=== PATIENT | male | born 2005 | race Caucasian/White ===

== ENCOUNTER 2024-10-17 14:50 | Inpatient (IN) | payer BC ==
[2024-10-17] MEDS ORDERED: LORazepam 1 MG/0.5 ML VIAL IV PRN ×3 (15:14)
[2024-10-17] MEDS ORDERED: LORazepam 0.5 MG TAB PO PRN (15:14)
[2024-10-17] MEDS ORDERED: LORazepam 1 MG TAB PO PRN ×5 (15:14→23:24)
--- NOTE | 2024-10-17 15:16 | ED ---
Alcohol HPI - General Chief Complaint: Alcohol Stated Complaint: Mental health eval Time Seen by Provider: 10/17/24 15:14 Source: patient, RN notes reviewed, old records reviewed Mode of arrival: ambulatory Limitations: no limitations - History of Present Illness Initial Comments: This is a 19-year-old male who comes in for alcohol evaluation history of alcohol use increased recent alcohol use with thoughts and persistent thoughts of suicidal ideation MD Complaint: alcohol intoxication Last Drink: just [employer] Previous Visits for Alcohol Intoxication?: Yes Recent Trauma: Yes Associated Symptoms: denies other symptoms Treatments Prior to Arrival: none Chronic Alcohol Use: No - Related Data Previous Rx's Medication Instructions Recorded Folic Acid 1 mg PO DAILY tab 10/23/24 Mirtazapine [Remeron] 15 mg PO HS 30 Days #30 tab 10/23/24 Multivitamins, Thera [Multivitamin 1 each PO DAILY tab 10/23/24 (formulary)] Naltrexone HCl [Revia] 50 mg PO DAILY 30 Days #30 tab 10/23/24 Nicotine 21Mg/24Hr Patch [Habitrol] 1 patch TRANSDERM DAILY 14 Days 10/23/24 #14 patch Sertraline [Zoloft] 50 mg PO HS 30 Days #30 tab 10/23/24 Thiamine [Vitamin B-1] 100 mg PO DAILY tab 10/23/24 Allergies Allergy/AdvReac Type Severity Reaction Status Date / Time No Known Allergies Allergy Verified 10/17/24 14:56 Review of Systems ROS Statement: Those systems with pertinent positive or pertinent negative responses have been documented in the HPI. ROS Other: All systems not noted in ROS Statement are negative. Past Medical History Past Medical History: No Reported History History of Any Multi-Drug Resistant Organisms: None Reported Past Surgical History: No Surgical Hx Reported Past Psychological History: No Psychological Hx Reported Smoking Status: Current every day smoker, Vaper Past Alcohol Use History: Abuse, Daily Past Drug Use History: None Reported - Past Family History Father Family Medical History: Unable to Obtain Mother Family Medical History: Unable to Obtain General Exam Limitations: no limitations General appearance: alert, in no apparent distress Head exam: Present: atraumatic, normocephalic, normal inspection Eye exam: Present: normal appearance, PERRL, EOMI. Absent: scleral icterus, conjunctival injection, periorbital swelling ENT exam: Present: normal exam, mucous membranes moist Neck exam: Present: normal inspection. Absent: tenderness, meningismus, lymphadenopathy Respiratory exam: Present: normal lung sounds bilaterally. Absent: respiratory distress, wheezes, rales, rhonchi, stridor Cardiovascular Exam: Present: regular rate, normal rhythm, normal heart sounds. Absent: systolic murmur, diastolic murmur, rubs, gallop, clicks GI/Abdominal exam: Present: soft, normal bowel sounds. Absent: distended, tenderness, guarding, rebound, rigid Extremities exam: Present: normal inspection, full ROM, normal capillary refill. Absent: tenderness, pedal edema, joint swelling, calf tenderness Back exam: Present: normal inspection Neurological exam: Present: alert, oriented X3, CN II-XII intact Psychiatric exam: Present: normal affect, normal mood Skin exam: Present: warm, dry, intact, normal color. Absent: rash Course Vital Signs 10/17/24 10/17/24 10/17/24 14:51 18:03 21:00 Temperature 98.4 F 98.4 F Pulse Rate 114 H 81 62 Respiratory 22 17 18 Rate Blood Pressure 167/81 131/79 117/54 O2 Sat by Pulse 98 99 98 Oximetry - Reevaluation(s) Reevaluation #1: 10/17/24 20:02 Medical records reviewed Reevaluation #2: 10/17/24 20:02 Medically cleared for psychiatric evaluation Reevaluation #3: Was pt. sent in by a medical professional or institution (, PA, DIRECTOR RADIO, urgent care, hospital, or halfway...) When possible be specific @ -no Did you speak to anyone other than the patient for history (EMS, parent, family, police, friend...)? What history was obtained from this source @ -no Did you review nursing and triage notes (agree or disagree)? Why? @ -agree Are old charts reviewed (outside hosp., previous admission, EMS record, old EKG, old radiological studies, urgent care reports/EKG's, halfway records)? Report findings @ -yes Differential Diagnosis (chest pain, altered mental status, abdominal pain women, abdominal pain men, vaginal bleeding, weakness, fever, dyspnea, syncope, headache, dizziness, GI bleed, back pain, seizure, CVA, palpatations, mental health, musculoskeletal)? @ -prior EKG interpreted by me (3pts min.). @ -no X-rays interpreted by me (1pt min.). @ -no CT interpreted by me (1pt min.). @ -no U/S interpreted by me (1pt. min.). @ -no What testing was considered but not performed or refused? (CT, X-rays, U/S, labs)? Why? @ -none What meds were considered but not given or refused? Why? @ -none Did you discuss the management of the patient with other professionals (professionals i.e. , PA, DIRECTOR RADIO, lab, RT, psych nurse, psychiatric social worker supervisor, assessment consultant, teacher, fisheries enforcement officer, gearcase assembler)? Give summary @ -no Was smoking cessation discussed for >3mins.? @ -no Was critical care preformed (if so, how long)? @ -no Were there social determinants of health that impacted care today? How? (Homelessness, low income, unemployed, alcoholism, drug addiction, transportation, low edu. Level, literacy, decrease access to med. care, senior living, rehab)? @ -none Was there de-escalation of care discussed even if they declined (Discuss DNR or withdrawal of care, Hospice)? DNR status @ -no What co-morbidities impacted this encounter? (DM, HTN, Smoking, COPD, CAD, Cancer, CVA, ARF, Chemo, Hep., AIDS, mental health diagnosis, sleep apnea, morbid obesity)? @ -none Was patient admitted / discharged? Hospital course, mention meds given and route, prescriptions, significant lab abnormalities, going to OR and other pertinent info. @ - 19 male who was seen eval by psychiatry in the ER and patient will be admitted for psychiatric evaluation and treatment secondary to depression and suicidal ideation Transferred for inpatient psychiatric evaluation Undiagnosed new problem with uncertain prognosis? @ -no Drug Therapy requiring intensive monitoring for toxicity (Heparin, Nitro, Insulin, Cardizem)? @ -no Were any procedures done? @ -no Diagnosis/symptom? @ -Major depression suicidal ideation Acute, or Chronic, or Acute on Chronic? @ -Acute Uncomplicated (without systemic symptoms) or Complicated (systemic symptoms)? @ -Complicated Side effects of treatment? @ -no Exacerbation, Progression, or Severe Exacerbation? @ -exacerbation Poses a threat to life or bodily function? How? (Chest pain, USA, NC, pneumonia, PE, COPD, DKA, ARF, appy, cholecystitis, CVA, Diverticulitis, Homicidal, Suicidal, threat to staff... and all critical care pts) @ -no Reevaluation #4: Differential Mental Health Depression, anxiety, bipolar, psychosis, schizophrenia, borderline personality, situational depression, adjustment disorder, behavioral disorder, brain tumor, malingering, substance abuse, encephalopathy, medication reaction, dementia, hypothyroidism, degenerative neurologic disorder, lupus.... This is not meant to be all-inclusive list Medical Decision Making - Medical Decision Making 19 male who was seen eval by psychiatry in the ER and patient will be admitted for psychiatric evaluation and treatment secondary to depression and suicidal id eation - Lab Data Result diagrams: 10/18/24 07:05 10/18/24 07:05 Lab Results 10/17/24 10/17/24 10/17/24 Range/Units 15:15 15:15 15:15 WBC 7.82 (4.50-10.00) 10*3/uL RBC 4.94 (4.40-5.60) 10*6/uL Hgb 15.3 (13.0-17.0) g/dL Hct 44.5 (39.6-50.0) % MCV 90.1 (80.0-97.0) fL MCH 31.0 (27.0-32.0) pg MCHC 34.4 (32.0-37.0) g/dL Plt Count 221 (140-440) 10*3/uL MPV 9.9 (9.5-12.2) fL Immature Gran % (Auto) 0.1 % Neutrophils % 74.5 % Lymphocytes % 16.5 % Monocytes % 6.8 % Eosinophils % 1.8 % Basophils % 0.3 % Immature Gran # 0.01 (0.00-0.04) 10*3/uL Neutrophils # 5.83 (1.80-7.70) 10*3/uL Lymphocytes # 1.29 (0.90-5.00) 10*3/uL Monocytes # 0.53 (0.20-1.00) 10*3/uL Eosinophils # 0.14 (0.04-0.35) 10*3/uL Basophils # 0.02 (0.00-0.10) 10*3/uL Sodium 139 (137-145) mmol/L Potassium 4.0 (3.5-5.1) mmol/L Chloride 105 (98-107) mmol/L Carbon Dioxide 25 (22-30) mmol/L Anion Gap 9 mmol/L BUN 11 (9-20) mg/dL Creatinine 0.73 (0.66-1.25) mg/dL Est GFR (CKD-EPI)AfAm >90 (>60 ml/min/1.73 sqM) Est GFR (CKD-EPI)NonAf >90 (>60 ml/min/1.73 sqM) Glucose 121 H (74-99) mg/dL Calcium 9.9 (8.4-10.2) mg/dL Phosphorus 3.5 (2.5-4.5) mg/dL Magnesium 2.1 (1.6-2.3) mg/dL Total Bilirubin 0.9 (0.2-1.3) mg/dL AST 33 (17-59) U/L ALT 27 (4-49) U/L Alkaline Phosphatase 63 (38-126) U/L Total Protein 7.3 (6.3-8.2) g/dL Albumin 4.8 (3.5-5.0) g/dL Lipase 43 (23-300) U/L Urine Color Light Yellow Urine Appearance Turbid (Clear) Urine pH 7.0 (5.0-8.0) Ur Specific [place] 1.014 (1.001-1.035) Urine Protein Trace H (Negative) Urine Glucose (UA) Negative (Negative) Urine Ketones Negative (Negative) Urine Blood Negative (Negative) Urine Nitrite Negative (Negative) Urine Bilirubin Negative (Negative) Urine Urobilinogen <2.0 (<2.0) mg/dL Ur Leukocyte Esterase Negative (Negative) Urine WBC <1 (0-5) /hpf Amorphous Sediment Moderate H (None) /hpf Urine Mucus Many H (None) /hpf Urine Opiates Screen Not Detected (NotDetected) Ur Oxycodone Screen Not Detected (NotDetected) Urine Methadone Screen Not Detected (NotDetected) Ur Barbiturates Screen Not Detected (NotDetected) U Tricyclic Antidepress Not Detected (NotDetected) Ur Phencyclidine Scrn Not Detected (NotDetected) Ur Amphetamines Screen Not Detected (NotDetected) U Methamphetamines Scrn Not Detected (NotDetected) U Benzodiazepines Scrn Detected H (NotDetected) Urine Cocaine Screen Detected H (NotDetected) U Marijuana (THC) Screen Not Detected (NotDetected) Serum Alcohol <10 mg/dL Coronavirus (PCR) (Not Detectd) 10/17/24 Range/Units 21:32 WBC (4.50-10.00) 10*3/uL RBC (4.40-5.60) 10*6/uL Hgb (13.0-17.0) g/dL Hct (39.6-50.0) % MCV (80.0-97.0) fL MCH (27.0-32.0) pg MCHC (32.0-37.0) g/dL Plt Count (140-440) 10*3/uL MPV (9.5-12.2) fL Immature Gran % (Auto) % Neutrophils % % Lymphocytes % % Monocytes % % Eosinophils % % Basophils % % Immature Gran # (0.00-0.04) 10*3/uL Neutrophils # (1.80-7.70) 10*3/uL Lymphocytes # (0.90-5.00) 10*3/uL Monocytes # (0.20-1.00) 10*3/uL Eosinophils # (0.04-0.35) 10*3/uL Basophils # (0.00-0.10) 10*3/uL Sodium (137-145) mmol/L Potassium (3.5-5.1) mmol/L Chloride (98-107) mmol/L Carbon Dioxide (22-30) mmol/L Anion Gap mmol/L BUN (9-20) mg/dL Creatinine (0.66-1.25) mg/dL Est GFR (CKD-EPI)AfAm (>60 ml/min/1.73 sqM) Est GFR (CKD-EPI)NonAf (>60 ml/min/1.73 sqM) Glucose (74-99) mg/dL Calcium (8.4-10.2) mg/dL Phosphorus (2.5-4.5) mg/dL Magnesium (1.6-2.3) mg/dL Total Bilirubin (0.2-1.3) mg/dL AST (17-59) U/L ALT (4-49) U/L Alkaline Phosphatase (38-126) U/L Total Protein (6.3-8.2) g/dL Albumin (3.5-5.0) g/dL Lipase (23-300) U/L Urine Color Urine Appearance (Clear) Urine pH (5.0-8.0) Ur Specific [place] (1.001-1.035) Urine Protein (Negative) Urine Glucose (UA) (Negative) Urine Ketones (Negative) Urine Blood (Negative) Urine Nitrite (Negative) Urine Bilirubin (Negative) Urine Urobilinogen (<2.0) mg/dL Ur Leukocyte Esterase (Negative) Urine WBC (0-5) /hpf Amorphous Sediment (None) /hpf Urine Mucus (None) /hpf Urine Opiates Screen (NotDetected) Ur Oxycodone Screen (NotDetected) Urine Methadone Screen (NotDetected) Ur Barbiturates Screen (NotDetected) U Tricyclic Antidepress (NotDetected) Ur Phencyclidine Scrn (NotDetected) Ur Amphetamines Screen (NotDetected) U Methamphetamines Scrn (NotDetected) U Benzodiazepines Scrn (NotDetected) Urine Cocaine Screen (NotDetected) U Marijuana (THC) Screen (NotDetected) Serum Alcohol mg/dL Coronavirus (PCR) Not Detected (Not Detectd) Disposition Clinical Impression: Major depression, Suicidal ideation Disposition: TRANSFER TO PSYCH HOSP/UNIT Condition: Fair Is patient prescribed a controlled substance at d/c from ED?: No
[2024-10-17] MEDS: LORazepam 1 MG/0.5 ML VIAL IV STA (16:11)
[2024-10-17] MEDS: SODIUM CHLORIDE 0.9% 1,000 ML IV STA (16:17)
[2024-10-17 16:26] LABS: Basophils # (A) 0.02 10*3/uL (0.00-0.10); Basophils % (A) 0.3 %; Eosinophils # (A) 0.14 10*3/uL (0.04-0.35); Eosinophils % (A) 1.8 %; HCT 44.5 % (39.6-50.0); HGB 15.3 g/dL (13.0-17.0); Lymphocytes # (A) 1.29 10*3/uL (0.90-5.00); Lymphocytes % (A) 16.5 %; MCHC 34.4 g/dL (32.0-37.0); MCV 90.1 fL (80.0-97.0); Mean Platelet Volume 9.9 fL (9.5-12.2); Monocytes # (A) 0.53 10*3/uL (0.20-1.00); Monocytes % (A) 6.8 %; Neutrophils # (A) 5.83 10*3/uL (1.80-7.70); Neutrophils % (A) 74.5 %; Platelet Count 221 10*3/uL (140-440); RBC 4.94 10*6/uL (4.40-5.60); RDW 12.5 % (11.5-14.5); WBC 7.82 10*3/uL (4.50-10.00)
[2024-10-17 16:46] LABS: ALT 27 U/L (4-49); African American GFR (CKD) >90 (>60 ml/min/1.73 sqM); Alcohol <10 mg/dL; Anion Gap 9 mmol/L; Blood Urea Nitrogen 11 mg/dL (9-20); Calcium 9.9 mg/dL (8.4-10.2); Carbon Dioxide 25 mmol/L (22-30); Chloride 105 mmol/L (98-107); Glucose 121 mg/dL (74-99); Lipase 43 U/L (23-300); Non-African American GFR(CKD) >90 (>60 ml/min/1.73 sqM); Sodium 139 mmol/L (137-145); Total Bilirubin 0.9 mg/dL (0.2-1.3)
[2024-10-17 17:02] LABS: AST 33 U/L (17-59); Albumin 4.8 g/dL (3.5-5.0); Alkaline Phosphatase 63 U/L (38-126); Magnesium 2.1 mg/dL (1.6-2.3); Phosphorus 3.5 mg/dL (2.5-4.5); Total Protein 7.3 g/dL (6.3-8.2)
[2024-10-17 22:52] LABS: Amorphous Sediment,Urine Moderate /hpf; Appearance,Urine Turbid (Clear); Bilirubin,Urine Negative (Negative); Blood,Urine Negative (Negative); Color,Urine Light Yellow; Glucose,Urine (UA) Negative (Negative); Ketones,Urine Negative (Negative); Leukocyte Esterase,Urine Negative (Negative); Mucus,Urine Many /hpf; Nitrite,Urine Negative (Negative); Protein,Urine Trace (Negative); Specific Gravity,Urine 1.014 (1.001-1.035); Urobilinogen,Urine <2.0 mg/dL (<2.0); WBC,Urine <1 /hpf (0-5)
[2024-10-17 23:12] LABS: Phencyclidine Screen,Urine Not Detected (NotDetected); Urn Cannabinoid Scrn Not Detected (NotDetected)
[2024-10-17 23:13] LABS: Amphetamine Screen,Urine Not Detected (NotDetected); Barbiturate Screen,Urine Not Detected (NotDetected); Benzodiazepines Screen,Urine Detected (NotDetected); Cocaine Screen,Urine Detected (NotDetected); Methadone Screen, Urine Not Detected (NotDetected); Opiate Screen,Urine Not Detected (NotDetected); Oxycodone Screen, Urine Not Detected (NotDetected); Tricyclic Antidepressant,Urine Not Detected (NotDetected)
[2024-10-17] MEDS ORDERED: MAGNESIUM HYDROXIDE 2,400 MG/30 ML CUP PO PRN (23:24)
[2024-10-17] MEDS ORDERED: ACETAMINOPHEN TAB 325 MG TAB PO PRN (23:24)
[2024-10-17] MEDS ORDERED: IBUPROFEN 600 MG TAB PO PRN (23:24)
[2024-10-17] MEDS ORDERED: MAG HYDROX/AL HYDROX/SIMETH 355 ML BOTTLE PO PRN (23:24)
[2024-10-17] MEDS ORDERED: haloperidoL 5 MG TAB PO PRN (23:27)
[2024-10-17] MEDS ORDERED: HALOPERIDOL LACTATE 5 MG/ML 1 ML VIAL IM PRN (23:27)
--- NOTE | 2024-10-18 01:48 | P.HPIM ---
History of Present Illness H&P Date: 10/18/24 Chief Complaint: Medical Managment This is a 19-year-old male who comes in for alcohol evaluation history of alcohol use increased recent alcohol use with thoughts and persistent thoughts of suicidal ideation. Patient reports that he drinks around a pint of whiskey every day. He denies having any prior episodes of seizure. He does report symptoms of anxiety and tremor . Never seek medical help or attended rehab prior Past medical history : none Past surgical history : none Social history : Smokes around 1 pack/day, drinks around a pint of whiskey per day, denies any drug use (however his urine drug screen is positive for cocaine and benzodiazepine) PE : General: nontoxic, no distress, appears at stated age Derm: warm, dry, intact Head: atraumatic, normocephalic, symmetric Eyes: EOMI, anicteric sclera Mouth: no lip lesion, mucus membranes moist Cardiovascular: S1 S2 reg, no murmur, rubs, or gallops Lungs: CTA bilateral, no rales, no accessory muscle use Abdominal: soft, non-tender to palpataion, no appreciable organomegaly Extremities: no gross muscle atrophy, no edema, no contractures Neuro: Alert, Oriented, CNII-XII grossly intact, gait normal Psych: well appearing, appropriate affect II: Pupils equal and reactive, no RAPD, normal visual field and fundus III, IV, : EOM intact, no gaze preference or deviation V: normal VII: no facial asymmetry VIII: normal hearing to speech Assessment and plan : - Alcohol abuse with reports of alcohol withdrawal symptoms like tremors and anxiety : Continue with [facility] protocol Thiamine and folic acid daily -Suicidal ideation : Managed by behavioral unit -Drug abuse including cocaine : Counseling was done Thank you for the consult Time spent : 35 min Past Medical History Past Medical History: No Reported History History of Any Multi-Drug Resistant Organisms: None Reported Past Surgical History: No Surgical Hx Reported Past Anesthesia/Blood Transfusion Reactions: No Reported Reaction Smoking Status: Current every day smoker, Vaper - Past Family History Father Family Medical History: Unable to Obtain Mother Family Medical History: Unable to Obtain Medications and Allergies Allergies Allergy/AdvReac Type Severity Reaction Status Date / Time No Known Allergies Allergy Verified 10/17/24 14:56 Physical Exam Vitals: Vital Signs Temp Pulse Pulse Resp BP BP Pulse Ox 10/18/24 00:33 98.6 F 70 16 123/74 99 10/17/24 21:00 98.4 F 62 18 117/54 98 10/17/24 18:03 81 17 131/79 99 10/17/24 14:51 98.4 F 114 H 22 167/81 98 Intake and Output 10/17/24 10/17/24 10/18/24 14:59 22:59 06:59 Other: Weight 77.111 kg 77.111 kg Results CBC & Chem 7: 10/17/24 15:15 10/17/24 15:15 Labs: Abnormal Lab Results - Last 24 Hours (Table) 10/17/24 10/17/24 Range/Units 15:15 15:15 Glucose 121 H (74-99) mg/dL Urine Protein Trace H (Negative) Amorphous Sediment Moderate H (None) /hpf Urine Mucus Many H (None) /hpf U Benzodiazepines Scrn Detected H (NotDetected) Urine Cocaine Screen Detected H (NotDetected) Thrombosis Risk Factor Assmnt - Choose All That Apply Any of the Below Risk Factors Present?: No Other Risk Factors: No Thrombosis Risk Factor Assessment Level: Very Low Risk
[2024-10-18 07:23] LABS: Basophils # (A) 0.02 10*3/uL (0.00-0.10); Basophils % (A) 0.3 %; Eosinophils # (A) 0.22 10*3/uL (0.04-0.35); Eosinophils % (A) 3.7 %; HCT 42.6 % (39.6-50.0); HGB 13.9 g/dL (13.0-17.0); Lymphocytes # (A) 2.33 10*3/uL (0.90-5.00); Lymphocytes % (A) 39.3 %; MCH 30.7 pg (27.0-32.0); MCHC 32.6 g/dL (32.0-37.0); Mean Platelet Volume 9.6 fL (9.5-12.2); Monocytes # (A) 0.48 10*3/uL (0.20-1.00); Monocytes % (A) 8.1 %; Neutrophils # (A) 2.87 10*3/uL (1.80-7.70); Neutrophils % (A) 48.4 %; Platelet Count 197 10*3/uL (140-440); RBC 4.53 10*6/uL (4.40-5.60); RDW 12.3 % (11.5-14.5); WBC 5.93 10*3/uL (4.50-10.00)
[2024-10-18 07:35] LABS: ALT 25 U/L (4-49); AST 24 U/L (17-59); African American GFR (CKD) >90 (>60 ml/min/1.73 sqM); Albumin 4.1 g/dL (3.5-5.0); Alkaline Phosphatase 67 U/L (38-126); Anion Gap 8 mmol/L; Blood Urea Nitrogen 10 mg/dL (9-20); Calcium 10.1 mg/dL (8.4-10.2); Carbon Dioxide 30 mmol/L (22-30); Chloride 100 mmol/L (98-107); Glucose 96 mg/dL (74-99); Non-African American GFR(CKD) >90 (>60 ml/min/1.73 sqM); Potassium 4.1 mmol/L (3.5-5.1); Sodium 138 mmol/L (137-145); Total Bilirubin 0.9 mg/dL (0.2-1.3); Total Protein 6.4 g/dL (6.3-8.2)
[2024-10-18] MEDS: FOLIC ACID 1 MG TAB PO SCH (09:53)
[2024-10-18] MEDS: MULTIVITAMINS, THERA 1 EACH TAB PO SCH (09:53)
[2024-10-18] MEDS: THIAMINE 100 MG TAB PO SCH (09:53)
[2024-10-18] MEDS: NICOTINE 14MG/24HR PATCH TRANSDERM SCH (10:30)
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
[2024-10-18] MEDS: NALTREXONE HCL 50 MG TAB PO SCH (13:34)
[2024-10-18] MEDS: SERTRALINE 25 MG TAB PO SCH (13:35)
[2024-10-18 16:12] LABS: Chol/HDL Ratio 2.64 Ratio; LDL Cholesterol,Calculated 76.5 mg/dL (0.0-131.0)
--- NOTE | 2024-10-19 12:02 | P.PN ---
Progress Note - Text Progress Note Date: 10/19/24 Interval History: Patient was seen today for psychiatric follow up. Patient was active in group today doing a word search. He continues to minimize his suicidal thoughts and continues to be focused on discharge. Claims that yesterday he initially refused medications and then went back and took it. He claims that he may be feeling tired after taking the Zoloft was okay with having it switched to nighttime. We spoke about increasing the dose to 50 mg starting tomorrow. Claims that he has been trying to go to groups. Continues to have fairly poor insight. States that he may want to move out with his parents in [place]. At this time he is denying any issues with appetite. Denies any auditory or visual hallucinations denies any suicidal or homicidal ideations intent or plan. He is not reporting any withdrawal symptoms from alcohol. MENTAL STATUS EXAM: General Appearance: Patient appears to be well-built, wearing glasses, stated age is alert, directable, and attempts to cooperate. Minimizes. Patient appears to have improving hygiene and grooming. Behavior: Patient is seated without any agitated behavior. Superficial, guarded and evasive, improving mildly Speech: Patient's speech is fluent and nonpressured. Mood/Affect: Patient reports their mood is depressed, improving, affect is incongruent Suicidality/Homicidality: Patient denies having any homicidal ideation intent or plan. Denies any suicidal ideations intent or plan Perceptions: Patient denies any visual hallucinations and denies any auditory hallucinations Though content/process: There is no evidence of any delusional thought content and thought process is linear and goal-directed. Fairly concrete, guarded, improving mildly. Memory and concentration: AOX3, grossly intact for the purposes of this session Judgment and insight: Poor IMPRESSIONS: Depressive disorder unspecified Suicidal ideations Alcohol use disorder Cocaine abuse Nicotine dependence PLAN: -Patient is admitted under voluntary status to MHU for stabilization of psychiatric symptoms and safety. Patient has signed adult voluntary form and has not signed medication consent and is placed in patient's chart. -Medications : increase Zoloft 50 mg qhs for mood/anxiety, naltrexone 50 mg p.o. daily for alcohol cravings. Trazodone 50 mg nightly as needed for insomnia. -Ativan and Haldol PRN for agitation/aggression -thiamine, MVM for etoh use -CIWA protocol with Ativan PRN for ETOH withdrawal. -NRT -nicotine patch -SW on board for discharge planning. Encourage patient to participate in groups to work on coping skills. hopeful for discharge wednesday if patient is improving. he is refusing rehab at this time.
[2024-10-19] MEDS: NICOTINE 21MG/24HR PATCH TRANSDERM SCH (17:49)
[2024-10-19] MEDS: SERTRALINE 25 MG TAB PO ONE (20:24)
[2024-10-19] MEDS: traZODone HCL 50 MG TAB PO PRN (20:28)
--- NOTE | 2024-10-20 11:23 | P.PN ---
Progress Note - Text Progress Note Date: 10/20/24 Interval History: Patient was seen today for psychiatric follow up. Patient was wandering the h allways agreeable to speak to writer producer in the office. Claims that he is still having difficulties with his appetite. Claims that he was sleeping on and off last night, we spoke about alternatives to the trazodone he is agreeable to try the Remeron for tonight. Claims that his mood and anxiety have been mildly improving since yesterday. Continues to focus on discharge, less superficial today, more cooperative during the interview and pleasant. Claims that he has been going to groups trying to participate. Has been showering, hygiene and grooming improving. Denies any auditory or visual hallucinations denies any suicidal or homicidal ideations intent or plan. He is not reporting any withdrawal symptoms from alcohol. MENTAL STATUS EXAM: General Appearance: Patient appears to be well-built, wearing glasses, stated age is alert, directable, and attempts to cooperate. less Minimizes. Patient appears to have improving hygiene and grooming. Behavior: Patient is seated without any agitated behavior. Superficial, improving mildly Speech: Patient's speech is fluent and nonpressured. Mood/Affect: Patient reports their mood is improving, affect is incongruent Suicidality/Homicidality: Patient denies having any homicidal ideation intent or plan. Denies any suicidal ideations intent or plan Perceptions: Patient denies any visual hallucinations and denies any auditory hallucinations Though content/process: There is no evidence of any delusional thought content and thought process is linear and goal-directed, improving mildly. Memory and concentration: AOX3, grossly intact for the purposes of this session Judgment and insight: Superficial, improving IMPRESSIONS: Depressive disorder unspecified Suicidal ideations Alcohol use disorder Cocaine abuse Nicotine dependence PLAN: -Patient is admitted under voluntary status to MHU for stabilization of psychiatric symptoms and safety. Patient has signed adult voluntary form and has not signed medication consent and is placed in patient's chart. -Medications : Zoloft 50 mg qhs for mood/anxiety, naltrexone 50 mg p.o. daily for alcohol cravings. d/c Trazodone and replace with remeron 15 mg qhs for insomnia/appetite/mood. -Ativan and Haldol PRN for agitation/aggression -thiamine, MVM for etoh use -CIWA protocol with Ativan PRN for ETOH withdrawal, d/c over the weekend if doing well. -NRT -nicotine patch -SW on board for discharge planning. Encourage patient to participate in groups to work on coping skills. hopeful for discharge wednesday if patient is improving. he is refusing rehab at this time.
[2024-10-20] MEDS: MIRTAZAPINE 15 MG TAB PO SCH (20:15)
[2024-10-20] MEDS: SERTRALINE 50 MG TAB PO SCH (20:15)
--- NOTE | 2024-10-21 12:12 | P.PN ---
Progress Note - Text Progress Note Date: 10/21/24 Dictation was produced using [employer] dictation software. Please excuse any grammatical, word or spelling errors. Interval history: Patient was seen in the hallway and was directable and agreeable to speak with the chief writer in the office for psychiatric follow-up. The patient states that he is feeling good today, states that he slept well last night. State that he is eating well. He admitted to "good" mood. He reported depression and anxiety to be at the low level, he rated both at 1-2/10.He denied any current SI/HI or self harm. He denied any current AVH. Reported that he feels safe in the unit and is getting along well with every one in the unit. He is tending to his ADL. He has been compliant with his medications, he denied any current side effects. He was able to elaborate on the reasons for his admission, education was provided into substance use and patient reported that he is learning from his mistakes and planning not to use anymore. Education was provided into rehab. MENTAL STATUS EXAM: General Appearance: Patient appears to be well-built, wearing glasses, stated age is alert, directable, and attempts to cooperate. less Minimizes. Patient appears to have improving hygiene and grooming. Behavior: Patient is seated without any agitated behavior. Improving mildly Speech: Patient's speech is fluent and nonpressured. Mood/Affect: Patient reports their mood is improving, affect is incongruent Suicidality/Homicidality: Patient denies having any homicidal ideation intent or plan. Denies any suicidal ideations intent or plan Perceptions: Patient denies any visual hallucinations and denies any auditory hallucinations Though content/process: There is no evidence of any delusional thought content and thought process is linear and goal-directed, improving mildly. Memory and concentration: AOX3, grossly intact for the purposes of this session Judgment and insight: Superficial, improving IMPRESSIONS: Depressive disorder unspecified Suicidal ideations Alcohol use disorder Cocaine abuse Nicotine dependence Assessment/Plan: Continue with current diagnosis. Patient continues to meet criteria for inpatient psychiatric admission for symptom stabilization and safety. Patient will be maintained on current psychotropic medication regimen which includes Zoloft 50 mg p.o. hs, naltrexone 50 mg p.o daily for alcohol craving, and Remeron 15 mg which was started last night, trazodone was discontinued. No changes today. Monitor for medication compliance and for any psychotropic medication side effects. Will continue to monitor ongoing response to treatment. Encouraged participation in milieu.
--- NOTE | 2024-10-22 10:41 | P.PN ---
Progress Note - Text Progress Note Date: 10/22/24 Dictation was produced using [employer] dictation software. Please excuse any grammatical, word or spelling errors. Interval history: Patient was seen in the group room and was directable and agreeable to speak with the video games storywriter in the office for psychiatric follow-up. The patient states that he is feeling very well today. States that he slept well last night, and reported that his roommate is snoring loud. He admitted to good appetite. States that depression and anxiety are at the low side, he rated both at 0/10. He denied any current SI/HI or self harm, denied any AVH. He has been compliant with his medications, denied any side effects, he states that he is getting along well with everyone in the unit, and reported that he feels safe. He states that he would like to go to AA meetings and would like to talk to the director of social work about it. MENTAL STATUS EXAM: General Appearance: Patient appears to be well-built, wearing glasses, stated age is alert, directable, and attempts to cooperate, less Minimizes. Patient appears to have improving hygiene and grooming. Behavior: Patient is seated without any agitated behavior. Improving mildly Speech: Patient's speech is fluent and nonpressured. Mood/Affect: Patient reports their mood is improving, affect is incongruent Suicidality/Homicidality: Patient denies having any homicidal ideation intent or plan. Denies any suicidal ideations intent or plan Perceptions: Patient denies any visual hallucinations and denies any auditory hallucinations Though content/process: There is no evidence of any delusional thought content and thought process is linear and goal-directed, improving mildly. Memory and concentration: AOX3, grossly intact for the purposes of this session Judgment and insight: Superficial, improving IMPRESSIONS: Depressive disorder unspecified Suicidal ideations Alcohol use disorder Cocaine abuse Nicotine dependence Assessment/Plan: Continue with current diagnosis. Patient continues to meet criteria for inpatient psychiatric admission for symptom stabilization and safety. Patient will be maintained on current psychotropic medication regimen which includes Zoloft 50 mg p.o. hs, naltrexone 50 mg p.o daily for alcohol craving, and Remeron 15 mg, trazodone was discontinued. No changes today. Monitor for medication compliance and for any psychotropic medication side effects. Will continue to monitor ongoing response to treatment. Encouraged participation in milieu.
[2024-10-22 22:08] VITALS: RESP 17
[2024-10-23 08:21] VITALS: BP 140/77; PULSE 70; TEMP 98.2
[2024-10-23] MEDS ORDERED: LORazepam 2 MG/ML INJ IV PRN ×2 (10:03)
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
== END 2024-10-23 11:58 | disposition home or self-care (01) | DRG 881 ==
LOC: EC 14:50 → 3MHU 23:19
PROVIDERS: ADMIT Psychiatry & Neurology Psychiatry; ATTEND Psychiatry & Neurology Psychiatry
DX: F32.9 Major depressive disorder, single episode, unspecified (principal); R45.851 Suicidal ideations; F14.10 Cocaine abuse, uncomplicated; F10.129 Alcohol abuse with intoxication, unspecified; F10.139 Alcohol abuse with withdrawal, unspecified; F17.210 Nicotine dependence, cigarettes, uncomplicated; F41.9 Anxiety disorder, unspecified; G47.00 Insomnia, unspecified; Z79.899 Other long term (current) drug therapy; Z81.8 Family history of other mental and behavioral disorders; Z11.52 Encounter for screening for COVID-19
CPT/HCPCS: 36415; 80053; 80061; 80306; 80320; 81001; 82075; 83036; 83690; 83735; 84100; 84443; 85025; 87635; 96361; 96374; 99285